=== PATIENT | female | born 1980 | race Caucasian/White ===

== ENCOUNTER 2017-01-11 15:26 | Inpatient (IN) | payer OTHER ==
--- NOTE | ~2017-01-11 | HP ---
Unit #: [id number] #: [id number] Patient: JAIME SANCHEZ [id number] [facility] [address] [place] [address] [id number] I MR#: [id number] NAME: JAIME SANCHEZ. ROOM: P207 Age: 36 Sex: F Admission Date: 01/11/2017 : 1980 Attending Physician: Satinder Rowe M.D. Admitting Physician: Satinder Rowe M.D. Primary Care Physician: Primary Care Physician No HISTORY AND PHYSICAL HISTORY OF PRESENT ILLNESS Jaime is a 36 year old admitted to [address] [place] [address] because of her polysubstance abuse which includes IV heroin and smoking methamphetamine. PAST MEDICAL HISTORY 1. Long history of illicit substance abuse to include IV drugs. 2. History of hidradenitis. 3. History of migraine headaches. 4. Hyperlipidemia. 5. Morbid obesity. PAST SURGICAL HISTORY 1. T and A. 2. I and D of multiple abscesses. ALLERGIES Tramadol, ranitidine, ketorolac. SOCIAL HISTORY Smokes 1-1/2 packs per day. Drinks alcohol rarely. Admits to a long history of illicit substance abuse to include IV heroin and smoking methamphetamine. FAMILY HISTORY Medically noncontributory. REVIEW OF SYSTEMS CONSTITUTIONAL: No fever or chills. HEENT: Denies any sore throat, ear pain or runny nose. CARDIOVASCULAR: Denies chest pain, irregular heart rhythm or palpitations. CHEST: Denies shortness of breath or cough. No hemoptysis. GASTROINTESTINAL: Denies nausea, vomiting, diarrhea or chronic constipation. ENDOCRINE: Denies history of increased thirst or urination. No recent significant weight loss or gain. GENITOURINARY: Denies dysuria, frequency, or hematuria. SKIN: Denies any rashes. HEMATOLOGIC: Denies history of increased bleeding or bruising. MUSCULOSKELETAL: Denies any hot, swollen joints. No generalized muscle pain. NEUROLOGIC: Denies problems with vision or speech. No frequent, severe headaches. No numbness, tingling or weakness in any extremities. Denies loss of bladder or bowel control. Unit #: [id number] #: [id number] Patient: JAIME SANCHEZ CURRENT MEDICATIONS No orders received at the time of this dictation. PHYSICAL EXAMINATION GENERAL: Alert, obese, no apparent distress. VITAL SIGNS: Blood pressure 130/94, heart rate 70, respirations 16, temperature 98.6. WEIGHT: 250. HEIGHT: 5 feet 3 inches. SKIN: Warm and dry without rash or lesion. HEENT: Normocephalic. TMs not viewed. Oral and nasal passages clear. Conjunctivae clear. PERRLA. EOMs intact. NECK: Supple without lymphadenopathy or thyromegaly. HEART: Regular rate and rhythm without murmur. LUNGS: Clear. ABDOMEN: Soft, nontender. : Not done. EXTREMITIES: No evidence of cyanosis, clubbing or edema. Moves all without focal deficit. NEUROLOGICAL: Grossly within normal limits. Cranial Nerves: II: Visual louie are intact. III, IV AND : Extraocular movements are intact. Pupils are equal, round and reactive to light. V: Facial sensation is grossly normal. VII: Facial movements and expression are normal. VIII: Auditory acuity grossly intact. IX, X: Uvula is midline. Phonation is normal. XI: Patient shrugs shoulders and turns head normally. XII: Tongue protrudes in the midline. Sensory and Motor Function: Sensory and motor sensation is grossly normal. Motor: moves all extremities well. Coordination: Gait is normal. Deep Tendon Reflexes: Intact. IMPRESSION Psychiatric admission. RECOMMENDATIONS PSYCHIATRIC: Per psychiatrist. MEDICAL: See no contraindications to participate in facility's activities. MEDICAL PROGNOSIS Good. MEDICAL CONDITION Stable. Dictated by... Jaime Freed P.A.-C. for Bisi Collado/emre TD: 01/11/2017 18:45 JOB #: [id number] Unit #: [id number] #: [id number] Patient: JAIME SANCHEZ [place] HISTORY AND PHYSICAL Page 1 of 1 X Jaime Freed X HISTORY AND PHYSICAL
--- NOTE | ~2017-01-11 | DS ---
Unit #: [id number] #: [id number] Patient: JAIME SANCHEZ [id number] [facility] [address] [place] [address] [id number] I MR#: [id number] NAME: JAIME SANCHEZ. ROOM: P207 Age: 36 Sex: F Admission Date: 01/11/2017 : 1980 Discharge Date: 01/13/2017 Attending Physician: Satnider Rowe M.D. Primary Care Physician: Primary Care Physician No DISCHARGE SUMMARY REASON FOR ADMISSION Depression DIAGNOSTIC STUDIES LABORATORY DATA: Remarkable for urine drug screen, positive for amphetamine. HOSPITAL COURSE The patient was admitted to inpatient unit on January 11 and discharged on 01/13/2017. The patient was treated on the inpatient unit with group therapy, individual therapy, medication management. The patient responded well with the above modalities of treatment. Subsequently the patient was discharged with a plan to followup in outpatient program. DISCHARGE MEDICATIONS 1. Protonix 40 mg daily for GERD 2. Trazodone 100 mg at bedtime for sleep 3. Vistaril 25 mg three times day for anxiety 4. Seroquel 100 mg at bedtime for mood stabilization 5. Topamax 25 mg twice daily for migraine headache and mood stabilization DISCHARGE DIAGNOSES PSYCHIATRIC 1. Mood disorder NOS F32.9. 2. Rule our bipolar mood disorder F31.89. 3. Anxiety disorder NOS. 4. 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 SECONDARY DIAGNOSIS Deferred. MEDICAL DIAGNOSIS 1. High cholesterol 2. Arthritis 3. Migraine headache STRESSORS Psychosocial stressors INSTRUCTION TO THE PATIENT The patient to followup in outpatient clinic as per nephrology social worker. Unit #: [id number] #: [id number] Patient: JAIME SANCHEZ CONDITION AT DISCHARGE The patient pleasant and cooperative denied any psychotic symptoms or any suicidal ideation. PROGNOSIS Guarded. DIET AND ACTIVITY As tolerated. Dictated by... Bisi Lay/thomas TD: 01/14/2017 01:43 JOB #: [id number] DISCHARGE SUMMARY Page 1 of 1 X Satinder Rowe MD X DISCHARGE SUMMARY
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
[~2017-01-11 15:26] MED LIST: ADVAIR 100-501 EAC1 IH; ADVAIR 100-501 EACH INH; ALBUTEROL 0.5ML INH; ALBUTEROL MININEB NEB; ALBUTEROL17 G1; ALBUTEROL17 GM INH; AMBIEN PO; AMBIEN10 MG PO; AMITRYPTYLINE PO; AMOXICILLIN PO; AUGMENTIN PO; BACTRIM DS TABL1 TA1 PO; BACTRIM DS TABL1 TA2 PO; BENEDRYL; CELEBREX100 MG PO; CIPRO PO; CIPRO250 MG PO; CLARITIN10 MG PO; CLEOCIN HCL300 M1 PO; COMBIVENT INH14.7 GM INH; COMBIVENT U/D3 M1 INH; DELTASONE20 MG; DEPO-ESTRADIO5 MG/ML; DESYREL50 MG; DIFLUCAN PO; DIPHENYDRAMINE25 MG PO; EC-NAPROSYN500 MG PO; EXCEDRIN MIGRAI1 TA1 PO; FERROUS SULFATE PO; FLEXERIL10 MG; FLEXERIL10 MG PO; FLOXIN20 EA OP; KEFLEX500 MG PO; KLONOPIN1 MG PO; LEVAQUIN PO; LORTAB 5/500 TA1 TA2 PO; MACROBID100 M1 PO; MEDROL4 MG/DOSE- PO; MOBIC15 MG PO; MUCINEX DM1 TAB.SR . PO; NEURONTIN PO; NO MEDICATIONS; PERCOCET PO; PHENERGAN PO; PHENERGAN VC W120 M1 PO; PHENERGAN W/CO120 ML PO; PHENERGAN25 MG PO; PREDNISONE PO; PRENATAL MULTIV1 TA1; PRENATAL MULTIV1 TA1 PO; PRILOSEC PO; PRILOSEC20 MG PO; PROMETHAZINE V240 ML PO; PROTONIX PO; PYRIDIUM PO; SEROQUEL PO; TOPAMAX; TOPAMAX200 MG PO; TRAZODONE PO; TYLENOL #3 PO; VENTOLIN5 MG/ML; VICODIN 5/1 TAB 5/50 PO; VOLTAREN50 MG PO; VOLTAREN75 MG PO; VYTORIN PO; ZITHROMAX PO; ZOFRANODT SL; [UNRECOGNIZED DRUG - OTHER] TOP
[2017-01-12 09:42] LABS: URINE APPEARANCE CLOUDY; URINE BILIRUBIN NEG (NEG); URINE BLOOD NEG (NEG); URINE COLOR YELLOW; URINE GLUCOSE NEG (NEG); URINE KETONE NEG (NEG); URINE LEUKOCYTE ESTERASE 3+ (NEG); URINE NITRATE POS (NEG); URINE PROTEIN NEG (NEG); URINE SPECIFIC GRAVITY 1.013 (1.003-1.035); URINE UROBILINOGEN 0.2 MG/DL (NEG)
[2017-01-12 09:46] LABS: URINE BACTERIA AUWI 4+ (NEGATIVE); URINE SQUAMOUS EPITHELIAL CELL FEW /[HPF]; UWBCS1 AUWI 25-50 (0-5)
[2017-01-12 09:51] LABS: BASOPHIL% 0.7 % (0-2.5); EOSINOPHIL# 0.3 X10e3 (0-0.7); EOSINOPHIL% 5.4 % (0.0-7.0); HEMATOCRIT 40.5 % (35.0-45.0); HEMOGLOBIN 13.2 gm/dL (12.0-16.0); LYMPHOCYTE# 2.3 X10e3 (1.0-3.5); LYMPHOCYTE% 40.1 % (17.0-45.0); MEAN CELL VOLUME 88.9 FL (83-96); MEAN CORPUSCULAR HEMOGLOBIN 28.9 PG (28-34); MEAN CORPUSCULAR HGB CONC 32.5 g/dL (30-36); MEAN PLATELET VOLUME 8.4 FL (6.5-11.5); MONOCYTE# 0.3 X10e3 (0-1.0); MONOCYTE% 5.6 % (3.0-12.0); NEUTROPHIL# 2.8 X10e3 (1.5-7.1); NEUTROPHIL% 48.2 % (40-75); PLATELET COUNT 233 X10e3 (140-420); RED BLOOD COUNT 4.56 X10e (3.90-5.30); RED CELL DISTRIBUTION WIDTH 15.1 % (11.0-15.5); WHITE BLOOD COUNT 5.8 X10e3 (4.0-10.5)
[2017-01-12 09:54] LABS: DIFF IND NO
[2017-01-12 09:58] LABS: ALBUMIN SERUM 3.4 g/dL (3.5-5.0); BILIRUBIN,TOTAL 0.5 mg/dL (0.2-2.0); BUN/CREATININE RATIO 12.5; CALCIUM SERUM 8.8 mg/dL (8.4-10.2); CREATININE SERUM 0.8 mg/dL (0.6-1.4); GLOM FILT RATE Estimated 96.3 mL/min (>60); POTASSIUM 4.2 mmol/L (3.5-5.1); PROTEIN TOTAL SERUM 6.2 g/dL (6.0-8.3)
[2017-01-12 10:44] LABS: AMPHETAMINE POS (NEG); BARBITURATES NEG (NEG); BENZODIAZEPINES NEG (NEG); COCAINE NEG (NEG); MARIJUANA NEG (NEG); OPIATES NEG (NEG); TRICYCLIC ANTIDEPRESSANTS NEG (NEG); U METHADONE NEG (NEG)
== END 2017-01-13 11:35 | DRG 885 ==
LOC: P2S 15:26
PROVIDERS: Psychiatry & Neurology Psychiatry
DX: F39 Unspecified mood [affective] disorder (principal); F15.20 Other stimulant dependence, uncomplicated; F31.89 Other bipolar disorder; F41.9 Anxiety disorder, unspecified; F19.10 Other psychoactive substance abuse, uncomplicated; E78.00 Pure hypercholesterolemia, unspecified; M19.90 Unspecified osteoarthritis, unspecified site; G43.909 Migraine, unspecified, not intractable, without status migrainosus
CPT/HCPCS: 80053; 80307; 81003; 85025

== ENCOUNTER 2017-05-17 03:40 | Emergency (ER) | payer OTHER ==
--- NOTE | ~2017-05-17 | CR21 ---
[facility]. [facility] A Service of [facility] & [facility] RADIOLOGY TEXT RESULTS PATIENT: JAIME SANCHEZ LOCATION: SED : [birth year] UNIT #: [id number] AGE: [address]: Michael Hunter MD SEX: F ORDER DR: [id number] [place] [id number] MR#: [id number] Acc #: [id number] NAME: JAIME SANCHEZ : 1980 SEX: F STUDY DATE/TIME: 05/17/2017 4:30 UNIT: SED ROOM: STUDY DESCRIPTION: CR Ankle Min 3 Views Rt Attending Physician: Michael Hunter M.D. Ordering Physician: Michael Hunter M.D. Primary Care Physician: Primary Care Physician No MEDICAL IMAGING REPORT This report is preliminary unless electronic signature is present. EXAM Right ankle series INDICATION Right ankle pain after an injury today. PROCEDURE 3 views of the right ankle COMPARISON 06/17/2015 FINDINGS Nondisplaced medial malleolar fracture. Generalized soft tissue swelling of the ankle. No dislocation. IMPRESSION Nondisplaced medial malleolus fracture. Dictated by... Darius Holt M.D. THIS IS AN ELECTRONICALLY VERIFIED REPORT Darius Holt M.D. at 05/19/2017 9:59 PM Fernando TD: 05/17/2017 08:12 JOB #: [id number] MEDICAL IMAGING REPORT Page 1 of 1
== END 2017-05-17 06:08 | disposition home or self-care (01) ==
LOC: SED 03:40
DX: S82.54XA Nondisplaced fracture of medial malleolus of right tibia, initial encounter for closed fracture (principal); F17.200 Nicotine dependence, unspecified, uncomplicated; Z88.5 Allergy status to narcotic agent; Z88.8 Allergy status to other drugs, medicaments and biological substances; Z79.899 Other long term (current) drug therapy; W01.0XXA Fall on same level from slipping, tripping and stumbling without subsequent striking against object, initial encounter; Y92.410 Unspecified street and highway as the place of occurrence of the external cause
CPT/HCPCS: 29515; 29540; 73610; 99284; J1885